=== PATIENT | male | born 1990 | race Two or more races ===

== ENCOUNTER 2021-08-29 14:07 | Emergency (ER) | payer SELFPAY ==
[2021-08-29] MEDS ORDERED: Lidocaine 1% 5 ML VIAL ONE (14:27)
[2021-08-29] MEDS ORDERED: traMADol 50 MG Tab PO ONE (14:35)
[2021-08-29] MEDS ORDERED: Ketorolac 30 MG/ML SDV IM ONE (14:36)
[2021-08-29] MEDS ORDERED: Ketorolac 30 MG/ML SDV ONE (14:40)
[2021-08-29] MEDS ORDERED: traMADol 50 MG Tab ONE (14:40)
[2021-08-29] MEDS ORDERED: Ondansetron 4 MG Tab.DIS PO ONE (15:32)
[2021-08-29] MEDS ORDERED: Diphtheria,Pertussis(Acell),Tetanus Vaccine 0.5 ML Syringe IM ONE (15:34)
== END 2021-08-29 16:45 | disposition home or self-care (01) ==
LOC: LL.ED 14:07
DX: S01.511A Laceration without foreign body of lip, initial encounter (principal); Z23 Encounter for immunization; W01.198A Fall on same level from slipping, tripping and stumbling with subsequent striking against other object, initial encounter
CPT/HCPCS: 12013; 90471; 90715; 96372; 99282-25; A9270-GY; J1885